=== PATIENT | female | born 1995 | race Two or more races ===

== ENCOUNTER 2017-09-22 17:30 | Emergency (ER) | payer SELFPAY ==
[~2017-09-22] VITALS: Ht 154.9 cm; Wt 76.2 kg
[2017-09-22 18:03] VITALS: BP 115/76
[2017-09-22 19:30] LABS: Basophils # (auto) 0.1 uL; Eosinophils # (auto) 0.4 uL; Monocytes # (auto) 1.2 uL; Nucleated Red Blood Cells % 0.1 %
[2017-09-22 19:32] LABS: Eosinophils % (auto) 3.3 % (0.0-7.0); Hematocrit 37.2 % (36.0-46.0); Hemoglobin 12.3 g/dL (12.2-16.2); Lymphocytes % (auto) 26.7 % (10.0-50.0); Mean Corpuscular Hemoglobin 31.9 pg (28.0-32.0); Mean Corpuscular Hgb Conc. 32.9 g/dL (32.0-36.0); Mean Corpuscular Volume 96.8 fL (80.0-100.0); Monocytes % (auto) 10.9 % (0.0-12.0); Neutrophils # (auto) 6.5 uL; Neutrophils % (auto) 58.1 % (37.0-80.0); Platelet Count (auto) 456 10^3/uL (140-450); Red Blood Cells 3.85 10^6/uL (4.0-5.20); Red Cell Distribution Width 13.6 % (11.8-14.3); White Blood Cell 11.2 10^3/uL (4.4-10.8)
== END 2017-09-22 22:11 | disposition left against medical advice (07) ==
LOC: ER 17:38
DX: K92.0 Hematemesis (principal); Z53.21 Procedure and treatment not carried out due to patient leaving prior to being seen by health care provider
CPT/HCPCS: 36415; 85025